=== PATIENT | male | born 1975 | race Caucasian/White ===

== ENCOUNTER 2021-12-07 19:10 | Inpatient (IN) ==
[2021-12-07] MEDS ORDERED: Ondansetron 4 MG/2 ML VIAL IVP PRN (22:43)
[2021-12-07] MEDS ORDERED: *HR* OxyCODONE Immed Rel 5 MG TABLET PO PRN (22:43)
[2021-12-07] MEDS ORDERED: Acetaminophen 325 MG TABLET PO PRN (22:43)
[2021-12-07] MEDS ORDERED: Melatonin 3 MG TABLET PO PRN (22:43)
[2021-12-07] MEDS ORDERED: Naloxone 0.4 MG/ML INJ IVP PRN (22:43)
[2021-12-07] MEDS ORDERED: *HR* OxyCODONE/APAP 5/325 TABLET PO PRN (22:44)
[2021-12-07] MEDS ORDERED: D5% in Water 1,000 ML IVC PRN (22:47)
[2021-12-07] MEDS ORDERED: Dextrose Gel 15 GM/37.5 ML TUBE PO PRN ×2 (22:47)
[2021-12-07] MEDS ORDERED: *HR* Dextrose 50 % in Water (Syg) 50 ML SYRINGE IVP PRN (22:47)
[2021-12-08] MEDS ORDERED: Insulin LISPRO 300 UNITS/3 ML VIAL SUBQ SCH ×2 (00:30→21:00)
[2021-12-08] MEDS ORDERED: Insulin DETEMIR 100 UNIT/ML X5UNITS SUBQ SCH ×3 (00:30→21:00)
[2021-12-08] MEDS ORDERED: Iopamidol - 370 500 ML MLS IVP ONE (01:12)
[2021-12-08] MEDS: 0.9 % Sodium Chloride 1,000 ML IVC SCH ×2 (01:35→11:46)
[2021-12-08] MEDS: Piperacillin/Tazobactam 3.375 GM in 0.9 % Sodium Chloride Mini Bag 100 ML IVPB SCH ×4 (03:45→21:38)
[2021-12-08 05:32] LABS: Basophils % 0.3 %; Eosinophils % 0.4 %; Hematocrit 37.2 % (37.5-50.1); Hemoglobin 12.2 g/dL (12.9-16.9); Immature Granulocytes % 0.4 % (0-4); Lymphocytes # 1.1 K/mcL (0.6-4.6); Lymphocytes % 12.4 %; Mean Corpuscular HGB Conc 32.8 g/dL (31.6-35.5); Mean Corpuscular Hemoglobin 31.3 pg (28.0-33.3); Mean Corpuscular Volume 95.4 fL (83.0-100.0); Mean Platelet Volume 10.5 fL (9.4-12.4); Monocytes # 0.6 K/mcL (0.0-1.3); Monocytes % 6.6 %; Neutrophils # 7.3 K/mcL (1.6-8.9); Platelet Count 222 K/mcL (140-400); Red Cell Distribution Width 12.2 % (11.5-14.5); Segmented Neutrophils % 79.9 %; White Blood Count 9.1 K/mcL (4.3-11.1)
[2021-12-08 05:40] LABS: Prothrombin Time 11.6 Seconds (9.4-12.1)
[2021-12-08 05:42] LABS: Activated Partial Thrombo Time 35.8 Seconds (26.0-36.0)
[2021-12-08 06:46] LABS: Albumin 3.3 g/dL (3.5-5.7); Bilirubin,Total 0.4 mg/dL (0.3-1.0); Calcium 8.6 mg/dL (8.6-10.3); Globulin 3.4 g/dL (2.4-3.5); Magnesium 1.5 mg/dL (1.6-2.6); Phosphorous 3.8 mg/dL (2.7-4.5); Potassium 4.3 mEq/L (3.5-5.1); Total Protein 6.7 g/dL (6.4-8.9)
[2021-12-08] MEDS ORDERED: Clindamycin 600 MG/50 ML 600 MG/50 ML IV.SOLN IVPB SCH ×2 (08:00→10:30)
[2021-12-08] MEDS ORDERED: Lactobacillus 1 EACH CAP.SPRINK PO SCH (09:00)
[2021-12-08] MEDS ORDERED: Nicotine 21 MG PATCH.TD24 TD SCH (09:00)
[2021-12-08] MEDS ORDERED: Gabapentin 100 MG CAPSULE PO SCH (09:00)
[2021-12-08] MEDS ORDERED: Aspirin Enteric Coated 81 MG Tablet PO SCH (09:00)
[2021-12-08] MEDS: Insulin LISPRO 300 UNITS/3 ML VIAL SUBQ SCH ×7 (10:16→21:35)
[2021-12-08] MEDS ORDERED: *HR* Midazolam HCl 2 MG/2 ML VIAL ONE (10:29)
[2021-12-08] MEDS ORDERED: *HR* FentaNYL (PF) 100 MCG/2 ML VIAL ONE (10:29)
[2021-12-08] MEDS ORDERED: *HR* HYDROmorphone PF 0.5 MG/0.5 ML SYRINGE IVP PRN (10:29)
[2021-12-08] MEDS ORDERED: Lidocaine -MPF 2% 5 ML VIAL ONE (10:29)
[2021-12-08] MEDS ORDERED: Lidocaine/EPI 1:100k 1% 20 ML VIAL ONE (12:12)
[2021-12-08] MEDS ORDERED: Bupivacaine/EPI 1:200k 0.25% 50 ML VIAL ONE (12:13)
[2021-12-08] MEDS ORDERED: Ondansetron 4 MG/2 ML VIAL ONE (12:55)
[2021-12-08] MEDS ORDERED: Vancomycin 1,000 MG VIAL ONE (12:57)
[2021-12-08] MEDS ORDERED: *HR* Heparin 5,000 UNIT/ML VIAL SQ SCH (14:00)
[2021-12-08] MEDS ORDERED: Melatonin 3 MG TABLET PO PRN (14:51)
[2021-12-08] MEDS ORDERED: *HR* Dextrose 50 % in Water (Syg) 50 ML SYRINGE IVP PRN (14:51)
[2021-12-08] MEDS ORDERED: Ondansetron 4 MG/2 ML VIAL IVP PRN (14:51)
[2021-12-08] MEDS ORDERED: Dextrose Gel 15 GM/37.5 ML TUBE PO PRN ×2 (14:51)
[2021-12-08] MEDS ORDERED: 0.9 % Sodium Chloride 1,000 ML IVC SCH (14:51)
[2021-12-08] MEDS ORDERED: D5% in Water 1,000 ML IVC PRN (14:51)
[2021-12-08] MEDS ORDERED: Naloxone 0.4 MG/ML INJ IVP PRN (14:51)
[2021-12-08] MEDS ORDERED: Acetaminophen 325 MG TABLET PO PRN (14:51)
[2021-12-08] MEDS: *HR* OxyCODONE/APAP 5/325 TABLET PO PRN (18:03)
[2021-12-08] MEDS: Clindamycin 600 MG/50 ML 600 MG/50 ML IV.SOLN IVPB SCH (18:09)
[2021-12-08] MEDS: Gabapentin 100 MG CAPSULE PO SCH ×2 (18:09→21:43)
[2021-12-08] MEDS: Insulin DETEMIR 100 UNIT/ML X5UNITS SUBQ SCH (21:43)
[2021-12-08] MEDS: Lactobacillus 1 EACH CAP.SPRINK PO SCH (21:43)
[2021-12-08] MEDS: *HR* Heparin 5,000 UNIT/ML VIAL SQ SCH (21:44)
[2021-12-09] MEDS: *HR* OxyCODONE/APAP 5/325 TABLET PO PRN ×2 (00:09→15:38)
[2021-12-09] MEDS: Clindamycin 600 MG/50 ML 600 MG/50 ML IV.SOLN IVPB SCH ×3 (02:50→18:40)
[2021-12-09] MEDS: Piperacillin/Tazobactam 3.375 GM in 0.9 % Sodium Chloride Mini Bag 100 ML IVPB SCH ×3 (03:50→21:34)
[2021-12-09 05:01] LABS: Calcium 8.2 mg/dL (8.6-10.3); Magnesium 1.5 mg/dL (1.6-2.6)
[2021-12-09 05:10] LABS: Basophils % 0.3 %; Eosinophils # 0.1 K/mcL (0.0-0.6); Hematocrit 32.6 % (37.5-50.1); Immature Granulocytes % 0.5 % (0-4); Lymphocytes # 1.2 K/mcL (0.6-4.6); Lymphocytes % 13.5 %; Mean Corpuscular HGB Conc 31.9 g/dL (31.6-35.5); Mean Corpuscular Hemoglobin 30.9 pg (28.0-33.3); Mean Corpuscular Volume 96.7 fL (83.0-100.0); Mean Platelet Volume 10.5 fL (9.4-12.4); Monocytes # 0.6 K/mcL (0.0-1.3); Monocytes % 7.2 %; Neutrophils # 6.8 K/mcL (1.6-8.9); Platelet Count 223 K/mcL (140-400); Red Blood Count 3.37 M/mcL (4.19-5.50); Red Cell Distribution Width 12.3 % (11.5-14.5); Segmented Neutrophils % 77.5 %; White Blood Count 8.8 K/mcL (4.3-11.1)
[2021-12-09 05:16] LABS: Hemoglobin 10.4 g/dL (12.9-16.9)
[2021-12-09] MEDS: *HR* Heparin 5,000 UNIT/ML VIAL SQ SCH ×3 (05:43→21:33)
[2021-12-09] MEDS: Insulin LISPRO 300 UNITS/3 ML VIAL SUBQ SCH ×7 (07:23→21:33)
[2021-12-09] MEDS: Lactobacillus 1 EACH CAP.SPRINK PO SCH ×2 (09:32→21:35)
[2021-12-09] MEDS: Aspirin Enteric Coated 81 MG Tablet PO SCH (09:32)
[2021-12-09] MEDS: Gabapentin 100 MG CAPSULE PO SCH ×3 (09:34→21:35)
[2021-12-09] MEDS: Insulin DETEMIR 100 UNIT/ML X5UNITS SUBQ SCH ×2 (09:34→21:33)
[2021-12-09] MEDS: Nicotine 21 MG PATCH.TD24 TD SCH (09:37)
[2021-12-09] MEDS ORDERED: Heparin 1,000 UNITS/500 mL 500 ML ONE ×2 (10:34→12:03)
[2021-12-09] MEDS ORDERED: *HR* Heparin 10,000 UNIT/10 ML VIAL ONE (10:34)
[2021-12-09] MEDS ORDERED: 0.9 % Sodium Chloride 2,000 ML ONE (10:35)
[2021-12-09] MEDS ORDERED: Iopamidol - 300 100 ML INFUS..BTL ONE (10:35)
[2021-12-09] MEDS ORDERED: *HR* FentaNYL (PF) 100 MCG/2 ML VIAL ONE ×2 (10:42→11:44)
[2021-12-09] MEDS ORDERED: *HR* Midazolam HCl 2 MG/2 ML VIAL ONE (10:42)
[2021-12-09] MEDS ORDERED: 0.9 % Sodium Chloride 1,000 ML IVC SCH (13:45)
[2021-12-09] MEDS: DAPTOmycin 500 MG in 0.9 % Sodium Chloride 100 ML IVPB SCH (14:48)
[2021-12-09] MEDS: *HR* Acetylcysteine 20% 600 MG/3 ML ORAL SYRINGE PO SCH ×2 (15:01→21:34)
[2021-12-09 18:21] LABS: Estimated Average Glucose 272 mg/dl; Hemoglobin A1C 11.1 %
[2021-12-09] MEDS ORDERED: *HR* Acetylcysteine 20% 600 MG/3 ML ORAL SYRINGE PO SCH (21:00)
[2021-12-10] MEDS: *HR* OxyCODONE/APAP 5/325 TABLET PO PRN ×2 (00:26→20:12)
[2021-12-10] MEDS: Clindamycin 600 MG/50 ML 600 MG/50 ML IV.SOLN IVPB SCH ×3 (02:16→17:48)
[2021-12-10] MEDS: Piperacillin/Tazobactam 3.375 GM in 0.9 % Sodium Chloride Mini Bag 100 ML IVPB SCH ×3 (04:52→19:45)
[2021-12-10] MEDS: *HR* Heparin 5,000 UNIT/ML VIAL SQ SCH ×3 (04:53→20:12)
[2021-12-10 07:00] LABS: Basophils % 0.2 %; Eosinophils # 0.2 K/mcL (0.0-0.6); Hematocrit 32.4 % (37.5-50.1); Hemoglobin 10.4 g/dL (12.9-16.9); Immature Granulocytes % 0.2 % (0-4); Lymphocytes # 1.2 K/mcL (0.6-4.6); Mean Corpuscular HGB Conc 32.1 g/dL (31.6-35.5); Mean Corpuscular Volume 96.7 fL (83.0-100.0); Mean Platelet Volume 10.3 fL (9.4-12.4); Monocytes # 0.5 K/mcL (0.0-1.3); Monocytes % 6.1 %; Neutrophils # 6.6 K/mcL (1.6-8.9); Platelet Count 211 K/mcL (140-400); Red Blood Count 3.35 M/mcL (4.19-5.50); Red Cell Distribution Width 12.5 % (11.5-14.5); Segmented Neutrophils % 77.5 %; White Blood Count 8.5 K/mcL (4.3-11.1)
[2021-12-10 07:18] LABS: Calcium 8.3 mg/dL (8.6-10.3); Magnesium 1.7 mg/dL (1.6-2.6); Potassium 4.1 mEq/L (3.5-5.1)
[2021-12-10] MEDS: Insulin LISPRO 300 UNITS/3 ML VIAL SUBQ SCH ×7 (09:24→19:58)
[2021-12-10] MEDS: *HR* Acetylcysteine 20% 600 MG/3 ML ORAL SYRINGE PO SCH ×2 (09:25→19:46)
[2021-12-10] MEDS: Nicotine 21 MG PATCH.TD24 TD SCH (09:25)
[2021-12-10] MEDS: Aspirin Enteric Coated 81 MG Tablet PO SCH (09:25)
[2021-12-10] MEDS: Gabapentin 100 MG CAPSULE PO SCH ×3 (09:25→19:46)
[2021-12-10] MEDS: Lactobacillus 1 EACH CAP.SPRINK PO SCH ×2 (09:25→19:45)
[2021-12-10] MEDS: DAPTOmycin 500 MG in 0.9 % Sodium Chloride 100 ML IVPB SCH (11:47)
[2021-12-10] MEDS: Insulin DETEMIR 100 UNIT/ML X5UNITS SUBQ SCH ×2 (11:47→19:58)
[2021-12-10] MEDS: Magnesium Oxide 400 MG TABLET PO SCH (15:29)
[2021-12-10] MEDS ORDERED: Sennosides 8.6 MG TABLET PO PRN (18:09)
[2021-12-11] MEDS: Clindamycin 600 MG/50 ML 600 MG/50 ML IV.SOLN IVPB SCH ×3 (02:26→18:06)
[2021-12-11 03:13] LABS: Calcium 8.8 mg/dL (8.6-10.3); Magnesium 1.7 mg/dL (1.6-2.6); Potassium 4.1 mEq/L (3.5-5.1)
[2021-12-11] MEDS: Piperacillin/Tazobactam 3.375 GM in 0.9 % Sodium Chloride Mini Bag 100 ML IVPB SCH ×3 (03:48→21:18)
[2021-12-11] MEDS: *HR* Heparin 5,000 UNIT/ML VIAL SQ SCH ×3 (05:27→23:07)
[2021-12-11] MEDS: Insulin LISPRO 300 UNITS/3 ML VIAL SUBQ SCH ×7 (09:32→23:07)
[2021-12-11] MEDS: Nicotine 21 MG PATCH.TD24 TD SCH (09:33)
[2021-12-11] MEDS: Lactobacillus 1 EACH CAP.SPRINK PO SCH ×2 (09:34→21:19)
[2021-12-11] MEDS: Aspirin Enteric Coated 81 MG Tablet PO SCH (09:34)
[2021-12-11] MEDS: Magnesium Oxide 400 MG TABLET PO SCH ×2 (09:34→21:19)
[2021-12-11] MEDS: Insulin DETEMIR 100 UNIT/ML X5UNITS SUBQ SCH ×2 (09:50→21:18)
[2021-12-11] MEDS: Gabapentin 100 MG CAPSULE PO SCH ×3 (09:53→23:07)
[2021-12-11] MEDS: *HR* OxyCODONE/APAP 5/325 TABLET PO PRN ×2 (10:03→21:53)
[2021-12-11] MEDS: DAPTOmycin 500 MG in 0.9 % Sodium Chloride 100 ML IVPB SCH (11:55)
[2021-12-11] MEDS ORDERED: polyethylene glycoL 3350 17 GM POWD.PACK PO PRN (12:16)
[2021-12-11] MEDS: Sennosides/Docusate Sodium TABLET PO SCH (21:19)
[2021-12-12] MEDS: Clindamycin 600 MG/50 ML 600 MG/50 ML IV.SOLN IVPB SCH ×2 (01:05→09:54)
[2021-12-12 04:10] LABS: Basophils % 0.5 %; Eosinophils # 0.2 K/mcL (0.0-0.6); Eosinophils % 2.4 %; Hematocrit 36.5 % (37.5-50.1); Hemoglobin 11.7 g/dL (12.9-16.9); Immature Granulocytes % 0.3 % (0-4); Lymphocytes # 1.4 K/mcL (0.6-4.6); Lymphocytes % 17.4 %; Mean Corpuscular HGB Conc 32.1 g/dL (31.6-35.5); Mean Corpuscular Hemoglobin 30.6 pg (28.0-33.3); Mean Corpuscular Volume 95.5 fL (83.0-100.0); Mean Platelet Volume 10.3 fL (9.4-12.4); Monocytes # 0.4 K/mcL (0.0-1.3); Monocytes % 5.5 %; Neutrophils # 5.9 K/mcL (1.6-8.9); Platelet Count 268 K/mcL (140-400); Red Blood Count 3.82 M/mcL (4.19-5.50); Red Cell Distribution Width 12.2 % (11.5-14.5); Segmented Neutrophils % 73.9 %
[2021-12-12 04:29] LABS: Calcium 8.8 mg/dL (8.6-10.3); Magnesium 1.7 mg/dL (1.6-2.6); Potassium 3.9 mEq/L (3.5-5.1)
[2021-12-12] MEDS: *HR* Heparin 5,000 UNIT/ML VIAL SQ SCH ×3 (05:14→20:29)
[2021-12-12] MEDS: Piperacillin/Tazobactam 3.375 GM in 0.9 % Sodium Chloride Mini Bag 100 ML IVPB SCH ×3 (05:25→20:29)
[2021-12-12] MEDS: Sennosides/Docusate Sodium TABLET PO SCH ×2 (09:51→20:29)
[2021-12-12] MEDS: Lactobacillus 1 EACH CAP.SPRINK PO SCH ×2 (09:51→20:29)
[2021-12-12] MEDS: Gabapentin 100 MG CAPSULE PO SCH ×3 (09:52→20:29)
[2021-12-12] MEDS: Magnesium Oxide 400 MG TABLET PO SCH ×2 (09:52→20:29)
[2021-12-12] MEDS: Aspirin Enteric Coated 81 MG Tablet PO SCH (09:52)
[2021-12-12] MEDS: DAPTOmycin 500 MG in 0.9 % Sodium Chloride 100 ML IVPB SCH (09:54)
[2021-12-12] MEDS: Nicotine 21 MG PATCH.TD24 TD SCH (09:55)
[2021-12-12] MEDS: Insulin DETEMIR 100 UNIT/ML X5UNITS SUBQ SCH ×2 (10:12→20:28)
[2021-12-12] MEDS: Insulin LISPRO 300 UNITS/3 ML VIAL SUBQ SCH ×7 (10:12→20:29)
[2021-12-12] MEDS: *HR* OxyCODONE/APAP 5/325 TABLET PO PRN ×2 (12:19→20:28)
[2021-12-13] MEDS: Piperacillin/Tazobactam 3.375 GM in 0.9 % Sodium Chloride Mini Bag 100 ML IVPB SCH ×3 (03:00→20:04)
[2021-12-13 04:54] LABS: Basophils % 0.3 %; Eosinophils # 0.2 K/mcL (0.0-0.6); Eosinophils % 2.3 %; Hematocrit 35.6 % (37.5-50.1); Hemoglobin 11.5 g/dL (12.9-16.9); Immature Granulocytes % 0.1 % (0-4); Lymphocytes # 1.3 K/mcL (0.6-4.6); Lymphocytes % 17.4 %; Mean Corpuscular HGB Conc 32.3 g/dL (31.6-35.5); Mean Corpuscular Hemoglobin 31.1 pg (28.0-33.3); Mean Corpuscular Volume 96.2 fL (83.0-100.0); Mean Platelet Volume 10.3 fL (9.4-12.4); Monocytes # 0.4 K/mcL (0.0-1.3); Monocytes % 4.8 %; Neutrophils # 5.6 K/mcL (1.6-8.9); Platelet Count 317 K/mcL (140-400); Red Cell Distribution Width 12.3 % (11.5-14.5); Segmented Neutrophils % 75.1 %; White Blood Count 7.5 K/mcL (4.3-11.1)
[2021-12-13 05:14] LABS: Calcium 8.8 mg/dL (8.6-10.3); Magnesium 1.7 mg/dL (1.6-2.6)
[2021-12-13] MEDS: *HR* Heparin 5,000 UNIT/ML VIAL SQ SCH ×3 (05:27→20:05)
[2021-12-13] MEDS: Insulin LISPRO 300 UNITS/3 ML VIAL SUBQ SCH ×7 (09:55→20:05)
[2021-12-13] MEDS: Gabapentin 100 MG CAPSULE PO SCH ×3 (09:59→20:04)
[2021-12-13] MEDS: Sennosides/Docusate Sodium TABLET PO SCH ×2 (09:59→20:04)
[2021-12-13] MEDS: Lactobacillus 1 EACH CAP.SPRINK PO SCH ×2 (10:00→20:04)
[2021-12-13] MEDS: Insulin DETEMIR 100 UNIT/ML X5UNITS SUBQ SCH ×2 (10:00→20:05)
[2021-12-13] MEDS: *HR* OxyCODONE/APAP 5/325 TABLET PO PRN ×2 (10:00→20:04)
[2021-12-13] MEDS: Aspirin Enteric Coated 81 MG Tablet PO SCH (10:00)
[2021-12-13] MEDS: Magnesium Oxide 400 MG TABLET PO SCH ×2 (10:00→20:04)
[2021-12-13] MEDS: Nicotine 21 MG PATCH.TD24 TD SCH (10:01)
[2021-12-14] MEDS: Piperacillin/Tazobactam 3.375 GM in 0.9 % Sodium Chloride Mini Bag 100 ML IVPB SCH ×3 (03:39→23:08)
[2021-12-14] MEDS: *HR* Heparin 5,000 UNIT/ML VIAL SQ SCH ×2 (05:08→11:45)
[2021-12-14 05:13] LABS: Basophils % 0.4 %; Eosinophils # 0.2 K/mcL (0.0-0.6); Eosinophils % 1.8 %; Hematocrit 34.3 % (37.5-50.1); Hemoglobin 11.1 g/dL (12.9-16.9); Immature Granulocytes % 0.2 % (0-4); Lymphocytes # 1.5 K/mcL (0.6-4.6); Lymphocytes % 17.4 %; Mean Corpuscular HGB Conc 32.4 g/dL (31.6-35.5); Mean Corpuscular Hemoglobin 30.8 pg (28.0-33.3); Mean Corpuscular Volume 95.3 fL (83.0-100.0); Monocytes # 0.4 K/mcL (0.0-1.3); Monocytes % 4.6 %; Neutrophils # 6.5 K/mcL (1.6-8.9); Platelet Count 341 K/mcL (140-400); Red Cell Distribution Width 12.3 % (11.5-14.5); Segmented Neutrophils % 75.6 %; White Blood Count 8.5 K/mcL (4.3-11.1)
[2021-12-14 05:28] LABS: BUN/Creatinine Ratio 14 (6-26); Blood Urea Nitrogen 14 mg/dL (6-20); Calcium 8.6 mg/dL (8.6-10.3); Carbon Dioxide 29 mEq/L (23-29); Chloride 100 mEq/L (98-107); Glucose 282 mg/dL (70-105); Magnesium 1.7 mg/dL (1.6-2.6); Osmolality,Calculated 293 (280-300); Potassium 4.1 mEq/L (3.5-5.1); Sodium 136 mEq/L (136-145)
[2021-12-14] MEDS ORDERED: carvediloL 6.25 MG TABLET PO SCH (08:00)
[2021-12-14] MEDS: Sennosides/Docusate Sodium TABLET PO SCH (08:46)
[2021-12-14] MEDS: *HR* OxyCODONE/APAP 5/325 TABLET PO PRN ×2 (08:51→17:41)
[2021-12-14] MEDS: Insulin LISPRO 300 UNITS/3 ML VIAL SUBQ SCH ×5 (08:56→15:41)
[2021-12-14] MEDS: Aspirin Enteric Coated 81 MG Tablet PO SCH (08:56)
[2021-12-14] MEDS: Gabapentin 100 MG CAPSULE PO SCH ×2 (08:57→15:41)
[2021-12-14] MEDS: Nicotine 21 MG PATCH.TD24 TD SCH (08:57)
[2021-12-14] MEDS: Lactobacillus 1 EACH CAP.SPRINK PO SCH ×2 (08:57→23:09)
[2021-12-14] MEDS: Magnesium Oxide 400 MG TABLET PO SCH (08:57)
[2021-12-14] MEDS: Insulin DETEMIR 100 UNIT/ML X5UNITS SUBQ SCH (08:57)
[2021-12-14] MEDS ORDERED: amLODIPine 5 MG TABLET PO SCH (09:00)
[2021-12-14] MEDS ORDERED: *HR* HYDROmorphone PF 0.5 MG/0.5 ML SYRINGE IVP PRN ×2 (14:46→16:51)
[2021-12-14] MEDS ORDERED: Bupivacaine/EPI 1:200k 0.25% 50 ML VIAL ONE (14:50)
[2021-12-14] MEDS ORDERED: *HR* Propofol 200 MG/20 ML VIAL IVP ONE (15:10)
[2021-12-14] MEDS ORDERED: *HR* FentaNYL (PF) 100 MCG/2 ML VIAL ONE (15:10)
[2021-12-14] MEDS ORDERED: Lidocaine -MPF 2% 5 ML VIAL ONE (15:11)
[2021-12-14] MEDS ORDERED: Ondansetron 4 MG/2 ML VIAL ONE (15:27)
[2021-12-14] MEDS ORDERED: *HR* FentaNYL (PF) 100 MCG/2 ML VIAL IVP PRN (15:52)
[2021-12-14] MEDS ORDERED: Dextrose Gel 15 GM/37.5 ML TUBE PO PRN ×2 (16:51)
[2021-12-14] MEDS ORDERED: Acetaminophen 325 MG TABLET PO PRN (16:51)
[2021-12-14] MEDS ORDERED: Sennosides 8.6 MG TABLET PO PRN (16:51)
[2021-12-14] MEDS ORDERED: polyethylene glycoL 3350 17 GM POWD.PACK PO PRN (16:51)
[2021-12-14] MEDS ORDERED: Naloxone 0.4 MG/ML INJ IVP PRN (16:51)
[2021-12-14] MEDS ORDERED: *HR* Dextrose 50 % in Water (Syg) 50 ML SYRINGE IVP PRN (16:51)
[2021-12-14] MEDS ORDERED: Melatonin 3 MG TABLET PO PRN (16:51)
[2021-12-14] MEDS ORDERED: D5% in Water 1,000 ML IVC PRN (16:51)
[2021-12-14] MEDS ORDERED: Insulin LISPRO 300 UNITS/3 ML VIAL SUBQ SCH ×2 (17:00→21:00)
[2021-12-14] MEDS: Vancomycin 1,250 MG/262.5 ML IV.SOLN IVPB SCH (17:41)
[2021-12-14] MEDS: carvediloL 6.25 MG TABLET PO SCH (17:41)
[2021-12-14] MEDS ORDERED: Insulin DETEMIR 100 UNIT/ML X5UNITS SUBQ SCH (21:00)
[2021-12-15] MEDS: Magnesium Oxide 400 MG TABLET PO SCH ×3 (00:05→19:56)
[2021-12-15] MEDS: Sennosides/Docusate Sodium TABLET PO SCH ×3 (00:06→19:56)
[2021-12-15] MEDS: *HR* OxyCODONE/APAP 5/325 TABLET PO PRN ×2 (00:07→05:38)
[2021-12-15] MEDS: *HR* Heparin 5,000 UNIT/ML VIAL SQ SCH ×4 (00:11→22:13)
[2021-12-15] MEDS: Gabapentin 100 MG CAPSULE PO SCH ×4 (00:14→19:57)
[2021-12-15] MEDS: Vancomycin 1,250 MG/262.5 ML IV.SOLN IVPB SCH ×2 (05:29→18:27)
[2021-12-15] MEDS: Piperacillin/Tazobactam 3.375 GM in 0.9 % Sodium Chloride Mini Bag 100 ML IVPB SCH ×3 (05:47→19:57)
[2021-12-15] MEDS ORDERED: Insulin LISPRO 300 UNITS/3 ML VIAL SUBQ SCH (07:30)
[2021-12-15] MEDS ORDERED: Insulin NPH/REG 70/30 100 UNIT/ML (x5UNIT) SUBQ SCH ×5 (07:30→16:30)
[2021-12-15] MEDS: Aspirin Enteric Coated 81 MG Tablet PO SCH (08:29)
[2021-12-15] MEDS: Lactobacillus 1 EACH CAP.SPRINK PO SCH ×2 (08:29→19:56)
[2021-12-15] MEDS: carvediloL 6.25 MG TABLET PO SCH ×2 (08:29→17:24)
[2021-12-15] MEDS: Nicotine 21 MG PATCH.TD24 TD SCH (08:30)
[2021-12-15] MEDS: amLODIPine 5 MG TABLET PO SCH (08:30)
[2021-12-15] MEDS: *HR* OxyCODONE/APAP 10/325 TABLET PO PRN ×2 (11:53→18:32)
[2021-12-16] MEDS: *HR* OxyCODONE/APAP 10/325 TABLET PO PRN ×2 (01:38→18:19)
[2021-12-16] MEDS: Piperacillin/Tazobactam 3.375 GM in 0.9 % Sodium Chloride Mini Bag 100 ML IVPB SCH (03:42)
[2021-12-16] MEDS: *HR* Heparin 5,000 UNIT/ML VIAL SQ SCH ×3 (06:41→21:51)
[2021-12-16] MEDS: Lactobacillus 1 EACH CAP.SPRINK PO SCH ×2 (08:53→21:51)
[2021-12-16] MEDS: Sennosides/Docusate Sodium TABLET PO SCH ×2 (08:54→21:51)
[2021-12-16] MEDS: Magnesium Oxide 400 MG TABLET PO SCH (08:54)
[2021-12-16] MEDS: Aspirin Enteric Coated 81 MG Tablet PO SCH (08:54)
[2021-12-16] MEDS: amLODIPine 5 MG TABLET PO SCH (08:54)
[2021-12-16] MEDS: carvediloL 6.25 MG TABLET PO SCH ×2 (08:55→18:09)
[2021-12-16] MEDS: Ondansetron 4 MG/2 ML VIAL IVP PRN (08:57)
[2021-12-16] MEDS ORDERED: Doxycycline 100 MG CAPSULE PO SCH (09:00)
[2021-12-16 09:35] LABS: Calcium 8.9 mg/dL (8.6-10.3); Potassium 4.7 mEq/L (3.5-5.1)
[2021-12-16] MEDS ORDERED: 0.9 % Sodium Chloride 1,000 ML IVC SCH (09:45)
[2021-12-16] MEDS: Nicotine 21 MG PATCH.TD24 TD SCH (10:26)
[2021-12-16] MEDS: Gabapentin 100 MG CAPSULE PO SCH ×2 (10:32→21:51)
[2021-12-16] MEDS: 0.9 % Sodium Chloride 1,000 ML IVC SCH ×2 (11:24→23:47)
[2021-12-16] MEDS: Amoxicillin/Clavulanate 500 MG TABLET PO SCH (18:09)
[2021-12-16] MEDS: Doxycycline 100 MG CAPSULE PO SCH (21:50)
[2021-12-16] MEDS: Insulin NPH/REG 70/30 100 UNIT/ML (x5UNIT) SUBQ SCH (23:47)
[2021-12-17] MEDS: *HR* OxyCODONE/APAP 10/325 TABLET PO PRN ×2 (00:20→20:09)
[2021-12-17 04:23] LABS: Calcium 8.4 mg/dL (8.6-10.3); Phosphorous 4.8 mg/dL (2.7-4.5); Potassium 4.7 mEq/L (3.5-5.1); Uric Acid 5.5 mg/dL (2.3-7.6)
[2021-12-17 04:34] LABS: Thyroid Stimulating Hormone 0.951 mcIU/mL (0.340-5.600)
[2021-12-17 04:44] LABS: Vitamin B12 220 pg/mL (250-1100)
[2021-12-17 04:46] LABS: Vitamin D 25 Hydroxy 20 ng/mL (30-80)
[2021-12-17] MEDS: *HR* Heparin 5,000 UNIT/ML VIAL SQ SCH ×3 (06:26→20:09)
[2021-12-17] MEDS: Ondansetron 4 MG/2 ML VIAL IVP PRN (07:01)
[2021-12-17 07:29] LABS: Protein/Creatinine Ratio,Urine 0.91 mg/mg (0.00-0.20); Sodium, Urine 61.2 mEq/L
[2021-12-17 07:35] LABS: Bilirubin,Urine Negative (Negative); Blood,Urine Negative (Negative); Clarity,Urine Clear (Clear); Color,Urine Colorless (Yellow); Glucose,Urine (UA) Normal (Normal); Ketones,Urine Negative (Negative); Leukocyte Esterase,Urine Negative (Negative); Nitrite,Urine Negative (Negative); Protein,Urine Trace mg/dL (Neg-Trace); RBC,Urine 0-3 per hpf (0-3); Specific Gravity,Urine 1.007 (1.010-1.025); Urobilinogen,Urine Normal (Normal)
[2021-12-17] MEDS: amLODIPine 5 MG TABLET PO SCH (07:56)
[2021-12-17] MEDS: Doxycycline 100 MG CAPSULE PO SCH ×2 (07:56→20:09)
[2021-12-17] MEDS: Sennosides/Docusate Sodium TABLET PO SCH (07:57)
[2021-12-17] MEDS: Lactobacillus 1 EACH CAP.SPRINK PO SCH ×2 (07:57→20:09)
[2021-12-17] MEDS: Insulin NPH/REG 70/30 100 UNIT/ML (x5UNIT) SUBQ SCH ×2 (07:57→16:55)
[2021-12-17] MEDS: Amoxicillin/Clavulanate 500 MG TABLET PO SCH ×2 (07:57→16:52)
[2021-12-17] MEDS: carvediloL 6.25 MG TABLET PO SCH ×2 (07:57→16:52)
[2021-12-17] MEDS: Aspirin Enteric Coated 81 MG Tablet PO SCH (07:57)
[2021-12-17] MEDS: Nicotine 21 MG PATCH.TD24 TD SCH (07:58)
[2021-12-17] MEDS: 0.9 % Sodium Chloride 1,000 ML IVC SCH ×3 (08:07→20:09)
[2021-12-17] MEDS ORDERED: Ergocalciferol (VIT D2) 50,000 UNIT (1.25MG) CAP PO SCH (13:30)
[2021-12-17] MEDS: Cyanocobalamin (B-12) 1,000 MCG/ML VIAL SQ SCH (16:52)
[2021-12-17] MEDS: Gabapentin 100 MG CAPSULE PO SCH (20:09)
[2021-12-18] MEDS: Ondansetron 4 MG/2 ML VIAL IVP PRN (00:34)
[2021-12-18] MEDS: 0.9 % Sodium Chloride 1,000 ML IVC SCH ×3 (04:09→20:06)
[2021-12-18] MEDS: *HR* OxyCODONE/APAP 10/325 TABLET PO PRN ×3 (04:09→23:19)
[2021-12-18] MEDS: *HR* Heparin 5,000 UNIT/ML VIAL SQ SCH ×3 (06:02→20:07)
[2021-12-18] MEDS: Nicotine 21 MG PATCH.TD24 TD SCH (09:29)
[2021-12-18] MEDS: Insulin NPH/REG 70/30 100 UNIT/ML (x5UNIT) SUBQ SCH ×2 (09:29→16:32)
[2021-12-18] MEDS: carvediloL 6.25 MG TABLET PO SCH ×2 (09:30→16:50)
[2021-12-18] MEDS: Lactobacillus 1 EACH CAP.SPRINK PO SCH ×2 (09:31→20:04)
[2021-12-18] MEDS: amLODIPine 5 MG TABLET PO SCH (09:32)
[2021-12-18] MEDS: Cyanocobalamin (B-12) 1,000 MCG/ML VIAL SQ SCH (09:38)
[2021-12-18] MEDS: Doxycycline 100 MG CAPSULE PO SCH ×2 (09:38→20:06)
[2021-12-18] MEDS: Amoxicillin/Clavulanate 500 MG TABLET PO SCH ×2 (09:38→16:50)
[2021-12-18] MEDS: Aspirin Enteric Coated 81 MG Tablet PO SCH (09:38)
[2021-12-18 09:39] LABS: Basophils % 0.2 %; Eosinophils # 0.1 K/mcL (0.0-0.6); Eosinophils % 1.4 %; Hematocrit 35.4 % (37.5-50.1); Hemoglobin 11.3 g/dL (12.9-16.9); Immature Granulocytes % 0.4 % (0-4); Lymphocytes # 1.1 K/mcL (0.6-4.6); Mean Corpuscular HGB Conc 31.9 g/dL (31.6-35.5); Mean Corpuscular Hemoglobin 30.8 pg (28.0-33.3); Mean Corpuscular Volume 96.5 fL (83.0-100.0); Mean Platelet Volume 10.1 fL (9.4-12.4); Monocytes # 0.4 K/mcL (0.0-1.3); Monocytes % 4.3 %; Neutrophils # 7.4 K/mcL (1.6-8.9); Platelet Count 378 K/mcL (140-400); Red Blood Count 3.67 M/mcL (4.19-5.50); Red Cell Distribution Width 12.4 % (11.5-14.5); Segmented Neutrophils % 81.7 %; White Blood Count 9.1 K/mcL (4.3-11.1)
[2021-12-18 09:52] LABS: Calcium 8.6 mg/dL (8.6-10.3); Potassium 4.8 mEq/L (3.5-5.1)
[2021-12-18] MEDS: *HR* OxyCODONE/APAP 5/325 TABLET PO PRN (20:06)
[2021-12-18] MEDS: Gabapentin 100 MG CAPSULE PO SCH (20:07)
[2021-12-19 04:23] LABS: Basophils % 0.3 %; Eosinophils # 0.1 K/mcL (0.0-0.6); Eosinophils % 1.8 %; Immature Granulocytes % 0.4 % (0-4); Lymphocytes # 1.1 K/mcL (0.6-4.6); Lymphocytes % 14.9 %; Mean Corpuscular HGB Conc 32.3 g/dL (31.6-35.5); Mean Platelet Volume 10.2 fL (9.4-12.4); Monocytes # 0.5 K/mcL (0.0-1.3); Monocytes % 6.7 %; Neutrophils # 5.5 K/mcL (1.6-8.9); Platelet Count 313 K/mcL (140-400); Red Blood Count 3.23 M/mcL (4.19-5.50); Red Cell Distribution Width 12.3 % (11.5-14.5); Segmented Neutrophils % 75.9 %; White Blood Count 7.3 K/mcL (4.3-11.1)
[2021-12-19] MEDS: 0.9 % Sodium Chloride 1,000 ML IVC SCH ×3 (04:30→20:11)
[2021-12-19] MEDS: *HR* OxyCODONE/APAP 5/325 TABLET PO PRN (04:30)
[2021-12-19] MEDS: Ondansetron 4 MG/2 ML VIAL IVP PRN ×2 (04:34→20:53)
[2021-12-19] MEDS: *HR* Heparin 5,000 UNIT/ML VIAL SQ SCH ×3 (04:34→20:11)
[2021-12-19 04:45] LABS: Potassium 4.7 mEq/L (3.5-5.1)
[2021-12-19] MEDS: Doxycycline 100 MG CAPSULE PO SCH (10:51)
[2021-12-19] MEDS: Cyanocobalamin (B-12) 1,000 MCG/ML VIAL SQ SCH (10:51)
[2021-12-19] MEDS: Lactobacillus 1 EACH CAP.SPRINK PO SCH ×2 (10:51→20:10)
[2021-12-19] MEDS: carvediloL 6.25 MG TABLET PO SCH ×2 (10:51→19:34)
[2021-12-19] MEDS: Aspirin Enteric Coated 81 MG Tablet PO SCH (10:51)
[2021-12-19] MEDS: Amoxicillin/Clavulanate 500 MG TABLET PO SCH ×2 (10:51→19:34)
[2021-12-19] MEDS: amLODIPine 5 MG TABLET PO SCH (13:16)
[2021-12-19] MEDS: Insulin NPH/REG 70/30 100 UNIT/ML (x5UNIT) SUBQ SCH ×2 (13:16→19:34)
[2021-12-19] MEDS: Nicotine 21 MG PATCH.TD24 TD SCH (13:16)
[2021-12-19] MEDS: *HR* OxyCODONE/APAP 10/325 TABLET PO PRN (20:10)
[2021-12-19] MEDS: Gabapentin 100 MG CAPSULE PO SCH (20:11)
[2021-12-20] MEDS: *HR* OxyCODONE/APAP 5/325 TABLET PO PRN (03:49)
[2021-12-20] MEDS: 0.9 % Sodium Chloride 1,000 ML IVC SCH (03:49)
[2021-12-20] MEDS: *HR* Heparin 5,000 UNIT/ML VIAL SQ SCH ×3 (05:32→22:07)
[2021-12-20 05:39] LABS: Basophils % 0.3 %; Eosinophils # 0.2 K/mcL (0.0-0.6); Eosinophils % 2.1 %; Hematocrit 30.7 % (37.5-50.1); Hemoglobin 9.8 g/dL (12.9-16.9); Immature Granulocytes % 0.3 % (0-4); Lymphocytes # 1.3 K/mcL (0.6-4.6); Lymphocytes % 18.1 %; Mean Corpuscular HGB Conc 31.9 g/dL (31.6-35.5); Mean Corpuscular Hemoglobin 30.8 pg (28.0-33.3); Mean Corpuscular Volume 96.5 fL (83.0-100.0); Mean Platelet Volume 10.4 fL (9.4-12.4); Monocytes # 0.5 K/mcL (0.0-1.3); Monocytes % 6.8 %; Neutrophils # 5.2 K/mcL (1.6-8.9); Platelet Count 309 K/mcL (140-400); Red Blood Count 3.18 M/mcL (4.19-5.50); Red Cell Distribution Width 12.5 % (11.5-14.5); Segmented Neutrophils % 72.4 %; White Blood Count 7.1 K/mcL (4.3-11.1)
[2021-12-20 06:31] LABS: Calcium 8.3 mg/dL (8.6-10.3); Potassium 4.5 mEq/L (3.5-5.1)
[2021-12-20] MEDS: Insulin NPH/REG 70/30 100 UNIT/ML (x5UNIT) SUBQ SCH ×2 (09:10→17:46)
[2021-12-20] MEDS: Cyanocobalamin (B-12) 1,000 MCG/ML VIAL SQ SCH (09:11)
[2021-12-20] MEDS: Amoxicillin/Clavulanate 500 MG TABLET PO SCH ×2 (09:11→22:07)
[2021-12-20] MEDS: Lactobacillus 1 EACH CAP.SPRINK PO SCH ×2 (09:11→22:08)
[2021-12-20] MEDS: amLODIPine 5 MG TABLET PO SCH (09:12)
[2021-12-20] MEDS: Nicotine 21 MG PATCH.TD24 TD SCH (09:12)
[2021-12-20] MEDS: Aspirin Enteric Coated 81 MG Tablet PO SCH (09:12)
[2021-12-20] MEDS: carvediloL 6.25 MG TABLET PO SCH ×2 (09:12→19:40)
[2021-12-20] MEDS: Sodium Bicarbonate 75 MEQ in 0.45 % Sodium Chloride 1,000 ML IVC SCH ×2 (13:34→23:11)
[2021-12-20] MEDS ORDERED: carvediloL 6.25 MG TABLET ONE (19:31)
[2021-12-20] MEDS: Gabapentin 100 MG CAPSULE PO SCH (22:07)
[2021-12-20] MEDS: *HR* OxyCODONE/APAP 10/325 TABLET PO PRN (22:09)
[2021-12-21 04:08] LABS: Bilirubin,Urine Negative (Negative); Blood,Urine Small (Negative); Clarity,Urine Clear (Clear); Color,Urine Colorless (Yellow); Glucose,Urine (UA) 500 mg/dL (Normal); Ketones,Urine Negative (Negative); Leukocyte Esterase,Urine Negative (Negative); Mucus,Urine Few per lpf (None-Few); Nitrite,Urine Negative (Negative); Protein,Urine Trace mg/dL (Neg-Trace); Specific Gravity,Urine 1.008 (1.010-1.025); Urobilinogen,Urine Normal (Normal); WBC,Urine 0-3 per hpf (0-3)
[2021-12-21 05:28] LABS: Complement C3 135 mg/dL (87-200)
[2021-12-21 05:42] LABS: Hematocrit 30.1 % (37.5-50.1); Hemoglobin 9.6 g/dL (12.9-16.9)
[2021-12-21 06:04] LABS: Calcium 8.2 mg/dL (8.6-10.3); Magnesium 1.4 mg/dL (1.6-2.6); Phosphorous 5.2 mg/dL (2.7-4.5); Potassium 4.4 mEq/L (3.5-5.1)
[2021-12-21] MEDS: *HR* Heparin 5,000 UNIT/ML VIAL SQ SCH ×3 (06:07→20:58)
[2021-12-21] MEDS: Sodium Bicarbonate 75 MEQ in 0.45 % Sodium Chloride 1,000 ML IVC SCH ×2 (06:07→19:50)
[2021-12-21 06:53] LABS: Hepatitis C Virus Antibody Nonreactive (Nonreactive)
[2021-12-21 06:54] LABS: Hepatitis A Antibody IgM Nonreactive (Nonreactive); Hepatitis B Core IgM Nonreactive (Nonreactive)
[2021-12-21] MEDS: Ondansetron 4 MG/2 ML VIAL IVP PRN ×2 (07:31→16:19)
[2021-12-21 08:39] LABS: Hepatitis B Surface Antigen Nonreactive (Nonreactive)
[2021-12-21] MEDS: Aspirin Enteric Coated 81 MG Tablet PO SCH (08:41)
[2021-12-21] MEDS: Amoxicillin/Clavulanate 500 MG TABLET PO SCH ×2 (08:41→18:28)
[2021-12-21] MEDS: carvediloL 6.25 MG TABLET PO SCH ×2 (08:41→18:28)
[2021-12-21] MEDS: Lactobacillus 1 EACH CAP.SPRINK PO SCH ×2 (08:41→20:57)
[2021-12-21] MEDS: amLODIPine 5 MG TABLET PO SCH (08:42)
[2021-12-21] MEDS: Nicotine 21 MG PATCH.TD24 TD SCH (08:42)
[2021-12-21] MEDS: Cyanocobalamin (B-12) 1,000 MCG/ML VIAL SQ SCH (08:42)
[2021-12-21] MEDS: Insulin NPH/REG 70/30 100 UNIT/ML (x5UNIT) SUBQ SCH (16:42)
[2021-12-21] MEDS: Gabapentin 100 MG CAPSULE PO SCH (20:58)
[2021-12-22] MEDS: Sodium Bicarbonate 75 MEQ in 0.45 % Sodium Chloride 1,000 ML IVC SCH (03:01)
[2021-12-22] MEDS: *HR* Heparin 5,000 UNIT/ML VIAL SQ SCH ×2 (05:59→14:02)
[2021-12-22 06:10] LABS: Calcium 7.4 mg/dL (8.6-10.3); Magnesium 1.2 mg/dL (1.6-2.6); Phosphorous 4.7 mg/dL (2.7-4.5); Potassium 3.7 mEq/L (3.5-5.1)
[2021-12-22] MEDS ORDERED: 0.9 % Sodium Chloride 1,000 ML IVC SCH ×2 (07:45)
[2021-12-22] MEDS: Lactobacillus 1 EACH CAP.SPRINK PO SCH (09:22)
[2021-12-22] MEDS: Aspirin Enteric Coated 81 MG Tablet PO SCH (09:22)
[2021-12-22] MEDS: carvediloL 6.25 MG TABLET PO SCH (09:23)
[2021-12-22] MEDS: amLODIPine 5 MG TABLET PO SCH (09:23)
[2021-12-22] MEDS: Cyanocobalamin (B-12) 1,000 MCG/ML VIAL SQ SCH (09:23)
[2021-12-22] MEDS: Nicotine 21 MG PATCH.TD24 TD SCH (09:23)
[2021-12-22] MEDS: Insulin NPH/REG 70/30 100 UNIT/ML (x5UNIT) SUBQ SCH (09:29)
[2021-12-22] MEDS: Amoxicillin/Clavulanate 500 MG TABLET PO SCH (09:45)
[2021-12-22 10:35] VITALS: BP 164/85; PULSE 81; TEMP 98; O2SAT 95
[2021-12-22] MEDS: Ondansetron 4 MG/2 ML VIAL IVP PRN (12:24)
[2021-12-23 11:30] LABS: Kappa Qnt Free Light Chains 126.36 mg/L (3.30-19.40); Lambda Qnt Free Light Chains 66.95 mg/L (5.71-26.30)
[2021-12-23 23:46] LABS: Alpha 2 Globulin (PEP) 1.15 g/dL (0.48-1.05); Beta Globulin (PEP) 0.79 g/dL (0.48-1.10)
[2021-12-25 14:35] LABS: IFE Reflexed NOT DONE
== END 2021-12-22 14:48 | disposition home or self-care (01) | DRG 710 ==
LOC: 4WAOSI → SUATTDRO 22:38
PROVIDERS: ADMIT Internal Medicine; ATTEND Internal Medicine